=== PATIENT | female | born 1960 | race Caucasian/White ===

== ENCOUNTER 2017-08-26 10:37 | Emergency (ER) | payer MEDICAID ==
[~2017-08-26] VITALS: Ht 127 cm; Wt 61.8 kg
[2017-08-26] MEDS ORDERED: METF500T6 PO (10:47)
[2017-08-26] MEDS ORDERED: GLIP10 PO (10:47)
[2017-08-26 10:52] LABS: GLUCOSE,POINT OF CARE 225 MG/DL (70-110)
[2017-08-26 13:31] VITALS: BP 145/92
== END 2017-08-26 13:37 | disposition home or self-care (01) ==
LOC: EMS 10:40
DX: H53.8 Other visual disturbances (principal); R03.0 Elevated blood-pressure reading, without diagnosis of hypertension; E11.9 Type 2 diabetes mellitus without complications
CPT/HCPCS: 82962; 99282

== ENCOUNTER 2021-09-08 07:06 | Day surgery (SDC) | payer OTHER ==
[2021-09-05 14:53] LABS: COVID AG,FIA SOURCE NASOPHARYNGEAL
[~2021-09-08] VITALS: Ht 134.6 cm; Wt 72.7 kg
[~2021-09-08 07:06] MED LIST: AMLO2.5T29 PO; ATOR40TA71 PO; GLIP10 PO; GLIP5TAB11 PO; LISI20TA24 PO; METF-1211 PO; SODIUM CHLORIDE 0.9% 1,000 ML IV ONE
[2021-09-08] MEDS ORDERED: PROPOFOL 1% 20 ML VIAL IVP ONE (07:07)
[2021-09-08] MEDS ORDERED: KETAMINE HCL 50 MG/ML 10 ML VIAL IVP ONE (07:07)
[2021-09-08] MEDS ORDERED: SODIUM CHLORIDE 0.9% 1,000 ML ONE (07:39)
[2021-09-08 08:41] LABS: GLUCOMETER DEV NAME(LOC) SDS.; GLUCOSE,POINT OF CARE 87 MG/DL (70-110)
== END 2021-09-08 11:45 | disposition home or self-care (01) ==
LOC: SURGERY 07:06
PROVIDERS: ATTEND Student in an Organized Health Care Education/Training Program
DX: K62.1 Rectal polyp (principal); K64.8 Other hemorrhoids; K59.00 Constipation, unspecified; E11.22 Type 2 diabetes mellitus with diabetic chronic kidney disease; E78.5 Hyperlipidemia, unspecified; I12.9 Hypertensive chronic kidney disease with stage 1 through stage 4 chronic kidney disease, or unspecified chronic kidney disease; N18.9 Chronic kidney disease, unspecified; D64.9 Anemia, unspecified; E66.9 Obesity, unspecified; K44.9 Diaphragmatic hernia without obstruction or gangrene; K31.89 Other diseases of stomach and duodenum; Z79.899 Other long term (current) drug therapy; Z98.890 Other specified postprocedural states
CPT/HCPCS: 45380; 43235; 82962; 87426; 93005; C1769; C9803; J2704; J3490; J7030; 88305